=== PATIENT | female | born 1960 | race Asian ===

== ENCOUNTER → 2018-04-06 | Outpatient (CLI) | payer OTHER ==
[~2018-04-06] VITALS: Ht 157.5 cm; Wt 66.0 kg
[~2018-04-06] MED LIST: LAMO25 PO; QUET50TA PO; SERT50TA12 PO; TEMA30 PO
[2018-04-06 10:18] VITALS: BP 128/77
== END | disposition home or self-care (01) ==
LOC: SRCNTR 10:02
PROVIDERS: ATTEND Internal Medicine Clinical Cardiac Electrophysiology
DX: Z45.018 Encounter for adjustment and management of other part of cardiac pacemaker (principal); I10 Essential (primary) hypertension; F41.9 Anxiety disorder, unspecified; F32.9 Major depressive disorder, single episode, unspecified; Z88.0 Allergy status to penicillin
CPT/HCPCS: G0463